=== PATIENT | male | born 1990 | race Caucasian/White ===

== ENCOUNTER 2019-05-03 11:57 | Emergency (ER) | payer OTHER, SELFPAY ==
[2019-05-03 11:58] VITALS: BP 138/89; PULSE 85; RESP 16; TEMP 36.4; O2SAT 100; BMI 21.5
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
[2019-05-03] MEDS: Ondansetron 4 MG/2 ML Vial IV (12:22)
[2019-05-03] MEDS: 0.9% Normal Saline 1,000 ML 1000 ML IV (12:22)
[2019-05-03] MEDS: morphine 8 MG/ML Syringe IV (12:22)
[2019-05-03] MEDS: morphine 8 MG/ML Syringe 6 MG IV (13:12)
[2019-05-03] MEDS: Lidocaine Jelly 2% 20 ML Syringe (URO-JET) 20 APPLIC TOPICAL ×2 (13:13→17:17)
[2019-05-03 14:00] VITALS: BP 119/84; PULSE 87; RESP 12; O2SAT 97
[2019-05-03 15:24] VITALS: BP 110/81; PULSE 76; RESP 12; O2SAT 97
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
--- NOTE | 2019-05-03 15:48 | ED.RN ---
PT REFUSES TO HAVE ANY TYPE OF MONITORING ON HIM. PT COMPLAINS DURING BP ATTEMPTS.
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
[2019-05-03 16:03] VITALS: RESP 14
[2019-05-03] MEDS: Diphth,Pertuss(Acell),Tet Vac 0.5 ML Vial IM (16:09)
[2019-05-03 17:17] VITALS: BP 108/83; PULSE 79; RESP 12
== END 2019-05-03 17:32 | disposition home or self-care (01) ==
PROVIDERS: Emergency Provider Emergency Medicine
DX: S60.512A Abrasion of left hand, initial encounter (principal); S60.511A Abrasion of right hand, initial encounter; S50.311A Abrasion of right elbow, initial encounter; S80.211A Abrasion, right knee, initial encounter; S70.312A Abrasion, left thigh, initial encounter; M25.461 Effusion, right knee; V29.9XXA Motorcycle rider (driver) (passenger) injured in unspecified traffic accident, initial encounter; Y93.9 Activity, unspecified; Y92.9 Unspecified place or not applicable
CPT/HCPCS: 71046; 72170; 73130; 73560; 90715; 96361; 96374; 96375; 99285; J7030; A4216; J2405